=== PATIENT | female | born 1985 | race African-American/Black ===

== ENCOUNTER 2016-06-05 13:26 | Emergency (ER) | payer OTHER ==
[2016-06-05] MEDS ORDERED: KETOROLAC 60 MG/2 ML VIAL IVP STA (14:15)
[2016-06-05] MEDS ORDERED: KETOROLAC 30 MG/ML VIAL ONE (14:33)
[2016-06-05] MEDS ORDERED: cefTRIAXone 1 GM in SODIUM CHLORIDE 0.9% MINIBAG 100 ML IV STA (16:38)
[2016-06-05] MEDS ORDERED: ceFAZolin 1 GM VIAL ONE (16:51)
[2016-06-05] MEDS ORDERED: cefTRIAXone 1 GM VIAL ONE (16:58)
== END 2016-06-05 18:16 | disposition home or self-care (01) ==
DX: K80.20 Calculus of gallbladder without cholecystitis without obstruction (principal); N12 Tubulo-interstitial nephritis, not specified as acute or chronic; R74.0 Nonspecific elevation of levels of transaminase and lactic acid dehydrogenase [LDH]